=== PATIENT | female | born 1985 | race Caucasian/White ===

== ENCOUNTER 2016-09-11 00:38 | Emergency (ER) | payer OTHER ==
[~2016-09-11] VITALS: Ht 170.2 cm; Wt 100.0 kg
[~2016-09-11 00:38] MED LIST: LORA1TAB PO; VENL150C PO; ZLP5T PO; [UNRECOGNIZED DRUG - CODE] PO
[2016-09-11 00:45] VITALS: BP 122/88; PULSE 91; RESP 16; O2SAT 98
--- NOTE | 2016-09-11 01:47 | ED.REPORT ---
HPI-Dental/Mouth Prob Date of Service Sep 11, 2016 ED Provider: Jeni Harris MD A 31 year old female with a history of hypertension and abdominal pain presents to the ED complaining of dental pain that began 2 days ago. Patient had a root canal x2 and the removal of lower composite tooth one week ago. She reports that the pain is radiating up her jaw. The pain has been constant since onset. Patient took acetaminophen and 800 mg of ibuprofen with no relief. She denies difficulty swallowing, difficulty breathing, fever or chills. Nursing Notes Stated Complaint: DENTAL PAIN Chief Complaint: Dental Nursing Notes Reviewed: Yes Allergies: Coded Allergies: Sulfa (Sulfonamide Antibiotics) (Verified Allergy, Unknown, 12/17/15) Scheduled Propranolol-Expunged Drug, Do Not Renew! (Propranolol [place]-Expunged Drug, Do Not Renew!) 60 Mg Capcr MG PO DAILY Venlafaxine ER (Effexor XR) 150 Mg Capsule 150 MG PO DAILY Zolpidem-Expunged Drug, Do Not Renew! (Zolpidem-Expunged Drug, Do Not Renew!) 5 Mg Tab 5 MG PO PRN Scheduled PRN Lorazepam (Lorazepam) 1 Mg Tablet 1 MG PO DAILY PRN PRN For Anxiety General Time Seen by MD: 01:43 Chief Complaint Other (Dental Pain ) Hx Obtained From: Patient Arrived By: Walk-in Onset Occurred: 2 days ago Symptom Duration: Since onset Quality: Painful Radiation: : Does not radiate Severity: Current: Mild Severity: Maximum: Mild Associated with: Denies: Can't fully open mouth, Chills, Fever Pertinent Negative: Pt denies other symptoms Recent Healthcare: No recent doctor visit, No recent hospitalization Past Medical History Past Medical History Notes: Multiple visits for abd and pelvic pain in 2013. [address]s in 2013 and 3 ultrasounds in 2013--all with negative findings. Past Medical History Hypertension Hx of Ovarian cysts Insomnia This is 10th ED visit for abdominal/pelvic pain since 02/2014--Multiple negative imaging Past Surgical History Exploratory laporotomy Hysterectomy Smoking History Never Smoker Social History Drug Use: Denies drug use Other Social History: Local resident Ambulatory Status Independent Review of Systems Pt is complaining of dental pain She denies any difficulty swallowing or difficulty breathing Constitutional: Denies: Chills, Fever Respiratory: Denies: Dyspnea on exertion, Shortness of breath GI: Denies: Abdominal pain, Nausea, Vomiting Complete sys rev & neg: except as marked. Neurologic: Denies: Change LOC Physical Exam Initial Vital Signs Vital Signs (First) Date Time Temp Pulse Resp B/P Pulse Ox O2 Delivery O2 Flow Rate FiO2 09/11/16 00:45 36.8 91 16 122/88 98 Room Air Initial VS: Reviewed Respiratory: Breath sounds normal, Clear to auscultation, No respiratory distress Cardiovascular: Regular rate & rhythm, Heart sounds normal, Intact distal pulses Extremities: Vascular intact, Neuro intact, No swelling, No tenderness Skin: Warm, Dry, No cyanosis Neurologic: Alert, Oriented, Nonfocal Psychiatric: Mood/affect normal, Behavior normal, Normal thought content ENT: Atraumatic, Airway patent, Mucous membranes moist Dental / Gums: Positive: Dental caries present (Multiple ), Tender to percussion (Diffuse tenderness to percussion of teeth ), Negative: Ginigivitis present (no gingivitis erythema, fluctuance or purulence) ENT: Soft sublingual space Neck: Atraumatic, Supple General/Constitutional: Awake, Alert Re-Eval/Medical Decision Med Decision/Clinical Course 31-year-old female here with dental pain. Differential diagnosis includes but is not limited to apical abscess versus gingivitis versus carious teeth versus drug-seeking behavior. Patient's exam is unremarkable. Her airway is patent, she has no difficulty breathing or swallowing. She has follow-up with her dentist in the next couple of days. I have advised her to take ibuprofen and Tylenol as directed. I have also advised her to take clove oil. She is aware and amenable to discharge at this time and has been given very strict return precautions. Re-Evaluation/Progress : Time of Eval: 01:54 Patient Status: Condition improved Re-Evaluation/Progress Note: She is informed of her diagnoses. All of the patient's questions are addressed. She understands and agrees to the treatment plan. Counseled Regarding: Diagnosis, Need for follow-up, When/why to return to ED Discharge & Departure Primary Impression: Pain, dental Disposition: Home Discharge Condition All VS Reviewed: Yes Condition: Stable Patient Instructions: Dental Caries (ED) Additional Instructions: Thank you for trusting us with your care this evening. Your examination is reassuring that there is no dangerous cause for concern at this time. Please use clove oil and take 800 mg of ibuprofen every 8 hours as needed for pain. Schedule a follow up appointment with your primary care physician in the next 2- 3 days for a recheck. Please return to the emergency department for any new or worsening symptoms. Referrals: SHIRLEY ROD MD (PCP) Dora Attestation Portions of this note were transcribed by Brian Issa. I, Dr. Harris personally performed the history, physical exam and medical decision-making; I reviewed and confirmed the accuracy of the information in the transcribed note. Signed by: Dora De La O, 09/11/16 0205. copies to: SHIRLEY ROD MD, Rebecca A MD Sep 11, 2016 01:46 BRIAN ISSA Sep 11, 2016 01:51
== END 2016-09-11 02:21 | disposition home or self-care (01) ==
LOC: SED 00:38
DX: K08.89 Other specified disorders of teeth and supporting structures (principal); I10 Essential (primary) hypertension; Z88.2 Allergy status to sulfonamides